=== PATIENT | male | born 2005 | race Caucasian/White ===

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

== ENCOUNTER 2024-06-07 03:38 | Emergency (ER) | payer BC ==
[2024-06-07] MEDS: Amoxicillin/Clavulanate K 875-125 MG Tab PO ONE (04:21)
[2024-06-07] MEDS: Acetaminophen/oxyCODONE 325-5 MG Tab PO ONE (04:21)
== END 2024-06-07 04:26 | disposition home or self-care (01) ==
LOC: JD.ED 03:38
DX: K04.7 Periapical abscess without sinus (principal); Z79.899 Other long term (current) drug therapy
CPT/HCPCS: 99282; A9270

== ENCOUNTER 2024-06-09 09:45 | Emergency (ER) | payer BC ==
[2024-06-09] MEDS: Ketorolac 30 MG/ML SDV IM ONE (10:18)
== END 2024-06-09 10:20 | disposition home or self-care (01) ==
LOC: JD.ED 09:45
DX: K02.9 Dental caries, unspecified (principal)
CPT/HCPCS: 96372; 99282; J1885

== ENCOUNTER 2024-09-08 00:57 | Emergency (ER) | payer BC | END 2024-09-08 01:20 | disposition left against medical advice (07) | LOC: JD.ED 00:57 | DX: S43.015A Anterior dislocation of left humerus, initial encounter (principal); S43.035A Inferior dislocation of left humerus, initial encounter; Z79.899 Other long term (current) drug therapy; Y04.0XXA Assault by unarmed brawl or fight, initial encounter | CPT/HCPCS: 73030-26-LT; 73030-LT; 99283 ==

== ENCOUNTER 2024-11-27 13:05 | Emergency (ER) | payer OTHER, BC ==
[2024-11-27] MEDS: Fluorescein 1 MG Ophth Strip EYEBOTH STA (13:47)
== END 2024-11-27 14:48 | disposition home or self-care (01) ==
LOC: JD.ED 13:05
DX: H10.213 Acute toxic conjunctivitis, bilateral (principal); T50.995A Adverse effect of other drugs, medicaments and biological substances, initial encounter
CPT/HCPCS: 99282; 99283; J3490